=== PATIENT | female | born 1940 | race African-American/Black ===

== ENCOUNTER 2019-07-23 13:20 | Outpatient (CLI) | payer MEDICARE ==
[2019-07-23 16:02] LABS: #Basophils 0.1 thou/uL (0.0-0.2); #Eosinphils 0.4 thou/uL (0.0-0.7); #Lymphocytes 2.9 thou/uL (1.20-3.40); #Monocytes 0.8 thou/uL (0.11-0.59); #Neutrophils 4.6 thou/uL (1.40-6.50); %Basophils 1.3 % (0.0-1.0); %Eosinophils 4.8 % (0.0-10.0); %Lymphocytes 33.1 % (21.0-51.0); %Monocytes 8.8 % (0.0-10.0); Hemoglobin 9.4 g/dL (12.0-16.0); Mean Corpuscular HGB CONC 30.5 g/dL (32.0-36.0); Mean Corpuscular Hemoglobin 24.8 pg (27.0-31.0); Mean Corpuscular Volume 81.3 fL (78.0-98.0); Mean Platelet Volume 9.5 fL (7.4-10.4); Platelet Count 280 thou/uL (130-400); RBC Distribution Width 12.5 % (11.5-14.5); Red Blood Cell (RBC) Count 3.77 mill/uL (4.20-5.40); White Blood Cell (WBC) Count 8.9 thou/uL (4.8-10.8)
[2019-07-23 16:04] LABS: Bacteria/HPF None Seen HPF (None Seen); Bilirubin Negative (Negative); Blood, Urine Negative (Negative); Clarity Clear (Clear); Glucose, Urine (Dipstick) Normal (Negative); Leukocyte Negative Leu/uL (Negative); Nitrite Negative (Negative); Protein, Urine (Dipstick) Negative (Neg-Trace); RBC/HPF 0-3 HPF (0-3); Squamous Epithelial 0-3 HPF (0-3); Urobilinogen Normal mg/dL (Less than 2); WBC/HPF 0-3 HPF (0-3)
[2019-07-23 16:07] LABS: Prothrombin Time 12.6 SEC (12.0-14.7)
[2019-07-23 16:31] LABS: Anion Gap 13 mmol/L (10-20); BUN (Urea Nitrogen) 15 mg/dL (9.8-20.1); Calc. Creatinine Clearance 0 mL/min (70-130); Calcium 9.5 mg/dL (7.8-10.44); Carbon Dioxide 26 mmol/L (23-31); Chloride 104 mmol/L (98-107); Estimated GFR-MDRD 40; Glucose 83 mg/dL (83-110); Potassium 3.7 mmol/L (3.5-5.1); Sodium 139 mmol/L (136-145)
== END 2019-07-23 13:21 | disposition home or self-care (01) ==
LOC: LABBT 13:20
PROVIDERS: ATTEND Orthopaedic Surgery
DX: Z01.812 Encounter for preprocedural laboratory examination (principal); M16.12 Unilateral primary osteoarthritis, left hip
CPT/HCPCS: 80048; 81001; 85025; 85610; 87081

== ENCOUNTER 2019-08-03 15:18 | Inpatient (IN) | payer MEDICARE, OTHER ==
[2019-09-17 11:31] LABS: #Basophils 0.1 thou/uL (0.0-0.2); #Eosinphils 0.6 thou/uL (0.0-0.7); #Monocytes 0.7 thou/uL (0.11-0.59); #Neutrophils 5.3 thou/uL (1.40-6.50); %Basophils 0.8 % (0.0-1.0); %Eosinophils 6.8 % (0.0-10.0); %Lymphocytes 22.8 % (21.0-51.0); %Monocytes 8.5 % (0.0-10.0); %Neutrophils 61.1 % (42.0-75.0); Hemoglobin 9.2 g/dL (12.0-16.0); Mean Corpuscular HGB CONC 30.5 g/dL (32.0-36.0); Mean Corpuscular Hemoglobin 25.5 pg (27.0-31.0); Mean Corpuscular Volume 83.8 fL (78.0-98.0); Mean Platelet Volume 9.8 fL (7.4-10.4); Platelet Count 251 thou/uL (130-400); RBC Distribution Width 13.4 % (11.5-14.5); Red Blood Cell (RBC) Count 3.59 mill/uL (4.20-5.40); White Blood Cell (WBC) Count 8.6 thou/uL (4.8-10.8)
[2019-09-17 11:34] LABS: Anion Gap 12 mmol/L (10-20); BUN (Urea Nitrogen) 28 mg/dL (9.8-20.1); Calc. Creatinine Clearance 0 mL/min (70-130); Calcium 9.9 mg/dL (7.8-10.44); Carbon Dioxide 27 mmol/L (23-31); Chloride 106 mmol/L (98-107); Estimated GFR-MDRD 33; Glucose 87 mg/dL (83-110); Potassium 4.5 mmol/L (3.5-5.1); Sodium 140 mmol/L (136-145)
--- NOTE | 2019-09-17 11:43 | HP ---
HISTORY OF PRESENT ILLNESS: The patient is an 78-year-old female with a one year history of progressive problems with the left hip without injury. She has progressive left hip and groin pain, which is now interfering with day-to-day activities including walking, getting dressed, and driving. She has had only partial relief with use of a walker, cane, and meloxicam. The patient lives alone. She still does drive her car. None of her children live in the area, but she does have a granddaughter lives approximately 10 minutes away and maybe she would offer her some help. PAST MEDICAL HISTORY: As noted above. The patient has history of hypertension, diabetes, and does have some diabetic nephropathy. She has been seen and cleared for surgery by Dr. Thomas. CURRENT MEDICATIONS: Include; 1. Multivitamins. 2. Low-dose aspirin. 3. Lisinopril. 4. Amlodipine. 5. Carvedilol. 6. Metformin. 7. Meloxicam. ALLERGIES: SHE HAS NO KNOWN ALLERGIES. FAMILY HISTORY: Otherwise unremarkable. SOCIAL HISTORY: Otherwise unremarkable. REVIEW OF SYSTEMS: Otherwise unremarkable except for symptomatic degenerative arthritis of her right knee. PHYSICAL EXAMINATION: GENERAL: Reveals an elderly, healthy female. HEENT: Unremarkable. NECK: Supple. CHEST: Clear. HEART: Regular rate and rhythm. ABDOMEN: Soft and nontender. PELVIC: Deferred. RECTAL: Deferred. BREASTS: Deferred. EXTREMITIES: Pertinent findings in the left lower extremity, which is 0.5 cm short. There is tenderness over the anterior hip. There is a left antalgic gait. There is decreased range of motion of the left hip and groin pain with internal rotation. Neurovascular exam is intact. Distal pulses are trace. There is good capillary refill. DIAGNOSTIC STUDIES: X-rays of the left hip reveal severe DJD with no joint space remaining. There is a significant change from previous x-rays. IMPRESSION: 1. Progressive degenerative arthritis, left hip. 2. History of hypertension. 3. History of type 2 diabetes. PLAN: Left total hip replacement. The nature of the surgery, length of recovery, and potential complications such as infection, loss of motion, incomplete relief, thromboembolic phenomenon, leg length discrepancy, neurovascular injury, possible transfusion, and need for revision have been discussed in detail. Job ID: [id number]
[2019-09-17 12:00] LABS: Bilirubin Negative (Negative); Blood, Urine Negative (Negative); Clarity Turbid (Clear); Glucose, Urine (Dipstick) Normal (Negative); Leukocyte 500 Leu/uL (Negative); Nitrite Negative (Negative); Protein, Urine (Dipstick) 70 mg/dL (Neg-Trace); Squamous Epithelial 21-50 HPF (0-3); Urobilinogen 3 mg/dL (Less than 2)
[2019-09-17 12:25] LABS: Bacteria/HPF 1+ HPF (None Seen); RBC/HPF 0-3 HPF (0-3)
[2019-09-17 17:18] LABS: SARS-CoV-2 MS2 Positive; SARS-CoV-2 N Gene Negative; SARS-CoV-2 S Gene Negative; SARS-CoV-2 orf1ab Negative
[2019-09-21] MEDS ORDERED: Vancomycin 1 GM/200 ML BAG ONE (07:40)
[2019-09-21] MEDS ORDERED: Sodium Chloride 0.9% 100 ML ONE (07:40)
[2019-09-21] MEDS ORDERED: Tranexamic Acid 1,000 MG/10 ML VIAL ONE ×2 (07:40→11:57)
[2019-09-21] MEDS ORDERED: Fentanyl 100 MCG/2 ML VIAL ONE ×2 (08:10→12:04)
[2019-09-21] MEDS ORDERED: Dexamethasone 4 mg/ml Vial ONE (08:10)
[2019-09-21] MEDS ORDERED: Midazolam HCl 2 mg/2 ml Vial ONE (08:10)
[2019-09-21] MEDS ORDERED: Glycopyrrolate 0.2 MG/ML 5 ML SYRINGE ONE (10:50)
[2019-09-21] MEDS ORDERED: PROPOFOL 200 MG/20 ML VIAL ONE (10:50)
[2019-09-21] MEDS ORDERED: Bupivacaine HCl 0.5%/Epinephrine 1:200,000/PF 30 ml Vial ONE (10:50)
[2019-09-21] MEDS ORDERED: Rocuronium Bromide 10 MG/ML (10ML VIAL) ONE (10:50)
[2019-09-21] MEDS ORDERED: Ondansetron PF 4 MG/2 ML Vial ONE (10:50)
[2019-09-21] MEDS ORDERED: Dexamethasone 20 MG/5 ML VIAL ONE (10:50)
[2019-09-21] MEDS ORDERED: Lidocaine 1% PF 5 ML VIAL ONE (10:50)
[2019-09-21] MEDS ORDERED: HYDROcodone/Acetaminophen 5/325 mg Tablet PO PRN (11:24)
[2019-09-21] MEDS ORDERED: Famotidine 20 MG TAB PO PRN (11:24)
[2019-09-21] MEDS ORDERED: Fluticasone Propionate Nasal Spray 16 gm Bottle NASAL PRN (11:24)
[2019-09-21] MEDS ORDERED: SUGAMMADEX SODIUM 200 MG/2 ML VIAL ONE (11:24)
[2019-09-21] MEDS ORDERED: Tranexamic Acid 1,000 MG in Sodium Chloride 0.9% 100 ML IVPB SCH ×2 (11:24→11:45)
[2019-09-21] MEDS ORDERED: Ondansetron PF 4 MG/2 ML Vial IVP PRN (11:24)
[2019-09-21] MEDS ORDERED: diphenhydrAMINE 25 MG CAP PO PRN (11:24)
[2019-09-21] MEDS ORDERED: Loratadine 10 MG TAB PO PRN (11:24)
[2019-09-21] MEDS ORDERED: Promethazine HCl 25 MG/ML VIAL SLOW IVP PRN ×2 (11:24→11:32)
[2019-09-21] MEDS ORDERED: Non-Formulary Item 1 EACH (Azelastine Hcl [Azelastine Hcl 0.15% Nasal Spray] 2 SPRAY) EA NARE PRN (11:24)
[2019-09-21] MEDS ORDERED: traMADol HCl 50 MG TAB PO PRN ×2 (11:24)
[2019-09-21] MEDS ORDERED: Vancomycin 1 GM in Premix Bag 1 BAG IVPB SCH (11:24)
[2019-09-21] MEDS ORDERED: Zolpidem Tartrate 5 MG TAB PO PRN (11:24)
[2019-09-21] MEDS ORDERED: Acetaminophen 325 MG TAB PO PRN (11:24)
[2019-09-21] MEDS ORDERED: Promethazine HCl 25 MG/ML VIAL IM PRN (11:32)
[2019-09-21] MEDS ORDERED: Ondansetron HCl/PF 4 MG/2 ML Vial IVP PRN (11:32)
--- NOTE | 2019-09-21 13:26 | RAD ---
LEFT HIP TWO VIEWS: History: Post op follow up. FINDINGS/IMPRESSION: Left hip prosthesis has been placed. Components appear in adequate position and alignment. No acute o sseous abnormality. POS: AGW
[2019-09-21] MEDS: Sodium Chloride 0.9% 1,000 ML IV SCH ×2 (13:30→22:21)
[2019-09-21] MEDS: Fentanyl 100 MCG/2 ML VIAL SLOW IVP PRN ×2 (13:31→20:53)
--- NOTE | 2019-09-21 13:34 | PDOC.HOSPP ---
- Subjective Encounter Date: 09/21/19 Encounter Time: 13:41 Subjective: Pt is admitted after left hip replacement, consulted for medical management Patient seen and examined. No new complaints. - Objective Vital Signs & Weight: Weight Weight 170 lb I&O: 09/20/19 09/21/19 09/22/19 06:59 06:59 06:59 Intake Total 200 Output Total 750 Balance -550 Result Diagrams: 09/17/19 10:02 09/17/19 10:02 Additional Labs: Accuchecks 09/21/19 08:15 POC Glucose 103 Radiology Reviewed by me: Yes EKG Reviewed by me: Yes Hospitalist ROS - Review of Systems ENT: denies: ear pain, ear discharge, nose pain, nose discharge, nose congestion , mouth pain, mouth swelling, throat pain, throat swelling, other Respiratory: denies: cough, dry, shortness of breath, hemoptysis, SOB with excertion, pleuritic pain, sputum, wheezing, other Cardiovascular: denies: chest pain, palpitations, orthopnea, paroxysmal noc. dyspnea, edema, light headedness, other Gastrointestinal: denies: nausea, vomiting, abdominal pain, diarrhea, constipation, melena, hematochezia, other Genitourinary: denies: dysuria, frequency, incontinence, hematuria, retention, other Musculoskeletal: denies: neck pain, shoulder pain, arm pain, back pain, hand pain, leg pain, foot pain, other Skin: denies: rash, lesions, urbano, bruising, other - Medication Medications: Active Medications Generic Name Dose Route Start Last Admin Trade Name Freq PRN Reason Stop Dose Admin Fentanyl 50 mcg 09/21/19 11:24 09/21/19 13:31 Sublimaze SLOW IVP 50 mcg Q30MIN PRN Administration Moderate Pain (4-6) Sodium Chloride 1,000 mls @ 100 mls/hr 09/21/19 11:24 09/21/19 13:30 Normal Saline 0.9% IV 1,000 mls .Q10H MAKENZIE Administration - Exam General Appearance: NAD, awake alert Eye: PERRL, anicteric sclera ENT: normocephalic atraumatic, no oropharyngeal lesions Neck: supple, symmetric, no JVD, no thyromegaly Heart: RRR, no murmur, no gallops, no rubs Respiratory: CTAB, no wheezes, no rales, no ronchi Gastrointestinal: soft, non-tender, non-distended, normal bowel sounds Extremities: no cyanosis, no clubbing, no edema Extremities - other findings: SURGICAL SITE WITH DRESSING, epidrual in place Skin: normal turgor, no lesions Neurological: no focal deficits Musculoskeletal: normal tone, normal strength Psychiatric: normal affect, normal behavior Hosp A/P (1) Status post left hip replacement Code(s): Z96.642 - PRESENCE OF LEFT ARTIFICIAL HIP JOINT Status: Acute (2) Hypertension Code(s): I10 - ESSENTIAL (PRIMARY) HYPERTENSION Status: Chronic Qualifiers: Hypertension type: essential hypertension Qualified Code(s): I10 - Essential (primary) hypertension (3) Dyslipidemia Code(s): E78.5 - HYPERLIPIDEMIA, UNSPECIFIED Status: Chronic (4) Diabetes type 2, controlled Code(s): E11.9 - TYPE 2 DIABETES MELLITUS WITHOUT COMPLICATIONS Status: Chronic Qualifiers: Diabetes mellitus septic tank service technician insulin use: with septic tank service technician use Diabetes mellitus complication status: without complication Qualified Code(s): E11.9 - Type 2 diabetes mellitus without complications; Z79.4 - assisted (current) use of insulin (5) Obesity (BMI 30.0-34.9) Code(s): E66.9 - OBESITY, UNSPECIFIED Status: Chronic (6) Osteoarthritis Code(s): M19.90 - UNSPECIFIED OSTEOARTHRITIS, UNSPECIFIED SITE Status: Chronic (7) Allergic rhinitis Code(s): J30.9 - ALLERGIC RHINITIS, UNSPECIFIED Status: Chronic (8) CKD (chronic kidney disease) stage 3, GFR 30-59 ml/min Code(s): N18.3 - CHRONIC KIDNEY DISEASE, STAGE 3 (MODERATE) Status: Chronic (9) Anemia, normocytic normochromic Code(s): D64.9 - ANEMIA, UNSPECIFIED Status: Chronic - Plan old records reviewed/req, PT/OT, DVT proph w/SCDs Home medication reconciled send urine culture epidural as per anesthesia consider brownlee removal as per protocol PT/OT as tolerated Pain medication code status-full code aspirin for DVT prophylaxis as per protocol.
[2019-09-21] MEDS: HYDROcodone/Acetaminophen 5/325 mg Tablet PO PRN (16:11)
[2019-09-21] MEDS: CEFAZOLIN 2 GM in Premix Bag 1 BAG IVPB SCH (17:49)
--- NOTE | 2019-09-21 18:58 | OP ---
DATE OF PROCEDURE: 09/21/2019 BIOLOGY ADJUNCT INSTRUCTOR: JOSTNI Silva. ANESTHESIA: General plus regional fascia iliaca block. PREOPERATIVE DIAGNOSIS: Degenerative arthritis, left hip. POSTOPERATIVE DIAGNOSIS: Degenerative arthritis, left hip. PROCEDURE PERFORMED: Left total hip replacement with uncemented Pamela Trident acetabular component 52 mm with X3 polyethylene insert and uncemented [place] Accolade II femoral stem #2 with 132-degree neck angle and +5 mm neck length 36 mm metal head. DESCRIPTION OF PROCEDURE: After satisfactory anesthesia was induced in supine position, sequential compression devices were placed on the nonoperative leg throughout the procedure. The patient was then turned to the lateral decubitus position and this position held with hip positioning device. The patient was then prepped and draped in routine sterile fashion. The hip was approached through a lateral curvilinear incision over the greater trochanter, carried down through the subcutaneous tissues. Bleeding points were controlled with Bovie cautery. A direct lateral approach was accomplished by dividing the anterior third of the gluteus medius and minimus tendons, reflecting this as a single flap anteriorly and medially along with the vastus lateralis. Anterior capsulectomy was performed and the hip dislocated anteriorly. There was marked degenerative arthritis of the hip with large areas of exposed bone. Femoral neck was osteotomized with an oscillating saw using a trial prosthesis as a guide. Acetabulum was exposed and cleaned of all soft tissue and debris. It was then reamed down to bleeding subchondral bone in sequence with the power reamers to a total of 52 mm. It was felt that a 52 mm Trident PSL outer shell could be placed in a press-fit fashion. The permanent outer shell was then hammered in position. There was good fit and stability of the component and the permanent X3 polyethylene liner was then snapped into position. The proximal femur was exposed, opened with the box osteotome, and then rasped in sequence to accept a #2 Accolade II femoral rasp. The 132-degree neck angle trunnion was placed on the rasp and trial reduction with a +5 mm 36 mm head gave appropriate size, fit, stability, and maintenance of leg length. The hip was again dislocated. The trial components were removed. The permanent #2 Accolade II femoral stem was then hammered in position. There was again good fit, stability of the component. The permanent +5 mm neck length 36 mm metal head was then placed on the trunnion. The hip again reduced and found to be stable. The hip was copiously irrigated with the pulsatile lavage. The abductors were repaired with interrupted #2 Vicryl. IT band and gluteal fascia were closed with interrupted #2 Vicryl and a running #2 Quill. Subcutaneous tissues were closed with running 0 Quill suture. The skin was closed with running subcuticular 3-0 Monoderm and SurgiSeal skin adhesive. Sterile dressing was applied. The patient turned to supine position and a pillow placed between her legs. Sequential compression devices were applied to her operated leg and she was taken to the recovery room in stable condition. There were no apparent intraoperative complications. ESTIMATED BLOOD LOSS: 200 mL. Job ID: [id number]
[2019-09-21] MEDS ORDERED: Dextrose 50% Abboject 50 ML SYRINGE SLOW IVP PRN (19:57)
[2019-09-21] MEDS ORDERED: HumaLOG 300 UNITS/3 ML VIAL SC PRN ×2 (19:57)
[2019-09-21] MEDS ORDERED: Dextrose 5% in Water 1,000 ML IV PRN (19:57)
[2019-09-21] MEDS: Carvedilol 6.25 MG TAB PO SCH (20:55)
[2019-09-21] MEDS: Aspirin 81 mg Enteric Coated Tablet PO SCH (20:55)
[2019-09-21] MEDS: Atorvastatin Calcium 20 MG TAB PO SCH (20:55)
[2019-09-21] MEDS: metFORMIN 500 MG TAB PO SCH (20:56)
[2019-09-22] MEDS: HYDROcodone/Acetaminophen 5/325 mg Tablet PO PRN ×3 (03:01→16:39)
[2019-09-22] MEDS: CEFAZOLIN 2 GM in Premix Bag 1 BAG IVPB SCH (03:01)
[2019-09-22 05:51] LABS: Hemoglobin 7.6 g/dL (12.0-16.0); Mean Corpuscular HGB CONC 30.8 g/dL (32.0-36.0); Mean Corpuscular Hemoglobin 25.9 pg (27.0-31.0); Mean Platelet Volume 9.5 fL (7.4-10.4); Platelet Count 211 thou/uL (130-400); Red Blood Cell (RBC) Count 2.93 mill/uL (4.20-5.40)
[2019-09-22] MEDS: Fentanyl 100 MCG/2 ML VIAL SLOW IVP PRN ×2 (06:21→21:32)
[2019-09-22] MEDS: Sodium Chloride 0.9% 1,000 ML IV SCH ×2 (08:30→18:28)
[2019-09-22] MEDS: metFORMIN 500 MG TAB PO SCH ×2 (08:41→21:33)
[2019-09-22] MEDS: Lisinopril 20 MG TAB PO SCH (08:42)
[2019-09-22] MEDS: Multivitamin W/ Minerals 1 TAB PO SCH (08:42)
[2019-09-22] MEDS: Amlodipine 10 MG TAB PO SCH (08:43)
[2019-09-22] MEDS: Senokot S 8.6-50 MG TAB PO SCH ×2 (08:43→21:33)
[2019-09-22] MEDS: Carvedilol 6.25 MG TAB PO SCH ×2 (08:43→21:33)
[2019-09-22] MEDS: Ferrous Gluconate 324 MG TAB PO SCH ×2 (08:43→21:33)
[2019-09-22] MEDS: Aspirin 81 mg Enteric Coated Tablet PO SCH ×2 (08:43→21:33)
[2019-09-22 09:54] VITALS: BMI 31.1
--- NOTE | 2019-09-22 09:59 | PDOC.HOSPP ---
- Subjective Encounter Date: 09/22/19 Encounter Time: 08:50 Subjective: Patient seen and examined. pt feels dizzi when stands up, her Hb dropped today, No overnight events - Objective Vital Signs & Weight: Vital Signs (12 hours) Temp Pulse Resp BP BP Pulse Ox 09/22/19 08:43 65 132/66 09/22/19 08:42 132/66 09/22/19 07:41 98.5 F 16 132/66 09/22/19 03:06 98.1 F 65 14 148/66 H 100 09/21/19 23:44 97.8 F 71 16 115/66 100 Weight Admit Weight 170 lb Weight 170 lb I&O: 09/21/19 09/22/19 09/23/19 06:59 06:59 06:59 Intake Total 2262 Output Total 1925 Balance 337 Result Diagrams: 09/22/19 05:18 09/17/19 10:02 Additional Labs: Accuchecks 09/22/19 09/21/19 05:41 21:00 POC Glucose 107 202 H Hospitalist ROS - Review of Systems ENT: denies: ear pain, ear discharge, nose pain, nose discharge, nose congestion , mouth pain, mouth swelling, throat pain, throat swelling, other Respiratory: denies: cough, dry, shortness of breath, hemoptysis, SOB with excertion, pleuritic pain, sputum, wheezing, other Cardiovascular: denies: chest pain, palpitations, orthopnea, paroxysmal noc. dyspnea, edema, light headedness, other Gastrointestinal: denies: nausea, vomiting, abdominal pain, diarrhea, constipation, melena, hematochezia, other Genitourinary: denies: dysuria, frequency, incontinence, hematuria, retention, other Musculoskeletal: denies: neck pain, shoulder pain, arm pain, back pain, hand pain, leg pain, foot pain, other Skin: denies: rash, lesions, urbano, bruising, other - Medication Medications: Active Medications Generic Name Dose Route Start Last Admin Trade Name Freq PRN Reason Stop Dose Admin Hydrocodone Bitart/Acetaminophen 2 tab 09/21/19 11:24 09/22/19 08:36 Ambrose 5/325 PO 2 tab Q4H PRN Administration Moderate to Severe Pain (6-10) Amlodipine Besylate 10 mg 09/22/19 09:00 09/22/19 08:43 Norvasc PO 10 mg DAILY [facility] Administration Aspirin 81 mg 09/21/19 21:00 09/22/19 08:43 Ecotrin PO 81 mg BID MAKENZIE Administration Atorvastatin Calcium 20 mg 09/21/19 21:00 09/21/19 20:55 Lipitor PO 20 mg HS MAKENZIE Administration Carvedilol 6.25 mg 09/21/19 21:00 09/22/19 08:43 Coreg PO 6.25 mg BID MAKENZIE Administration Cholecalciferol 1,000 units 09/22/19 09:00 09/22/19 08:41 Vitamin D3 PO 1,000 units DAILY [facility] Administration Fentanyl 50 mcg 09/21/19 11:24 09/22/19 06:21 Sublimaze SLOW IVP 50 mcg Q30MIN PRN Administration Moderate Pain (4-6) Ferrous Gluconate 324 mg 09/22/19 09:00 09/22/19 08:43 Fergon PO 324 mg BID [facility] Administration Sodium Chloride 1,000 mls @ 100 mls/hr 09/21/19 11:24 09/22/19 08:30 Normal Saline 0.9% IV Not Given .Q10H [facility] Iron/Minerals/Multivitamins 1 tab 09/22/19 09:00 09/22/19 08:42 Theragran M PO 1 tab DAILY [facility] Administration Lisinopril 20 mg 09/22/19 09:00 09/22/19 08:42 Zestril PO 20 mg DAILY [facility] Administration Metformin HCl 500 mg 09/21/19 21:00 09/22/19 08:41 Glucophage PO 500 mg BID [facility] Administration Senna/Docusate Sodium 2 tab 09/22/19 09:00 09/22/19 08:43 Senokot S PO 2 tab BID MAKENZIE Administration - Exam General Appearance: NAD, awake alert Eye: PERRL, anicteric sclera ENT: normocephalic atraumatic, no oropharyngeal lesions Neck: supple, symmetric, no JVD, no thyromegaly Heart: RRR, no murmur, no gallops, no rubs Respiratory: CTAB, no wheezes, no rales, no ronchi Gastrointestinal: soft, non-tender, non-distended, normal bowel sounds Extremities: no cyanosis, no clubbing Extremities - other findings: surgical site with dressing, epidural in place, brownlee in place Skin: normal turgor, no lesions Neurological: cranial nerve grossly intact, no focal deficits Musculoskeletal: normal tone, normal strength Psychiatric: normal affect, normal behavior Hosp A/P (1) Status post left hip replacement Code(s): Z96.642 - PRESENCE OF LEFT ARTIFICIAL HIP JOINT Status: Acute (2) Hypertension Code(s): I10 - ESSENTIAL (PRIMARY) HYPERTENSION Status: Chronic Qualifiers: Hypertension type: essential hypertension Qualified Code(s): I10 - Essential (primary) hypertension (3) Dyslipidemia Code(s): E78.5 - HYPERLIPIDEMIA, UNSPECIFIED Status: Chronic (4) Diabetes type 2, controlled Code(s): E11.9 - TYPE 2 DIABETES MELLITUS WITHOUT COMPLICATIONS Status: Chronic Qualifiers: Diabetes mellitus retirement insulin use: with termite treater helper use Diabetes mellitus complication status: without complication Qualified Code(s): E11.9 - Type 2 diabetes mellitus without complications; Z79.4 - assisted (current) use of insulin (5) Obesity (BMI 30.0-34.9) Code(s): E66.9 - OBESITY, UNSPECIFIED Status: Chronic (6) Osteoarthritis Code(s): M19.90 - UNSPECIFIED OSTEOARTHRITIS, UNSPECIFIED SITE Status: Chronic (7) Allergic rhinitis Code(s): J30.9 - ALLERGIC RHINITIS, UNSPECIFIED Status: Chronic (8) CKD (chronic kidney disease) stage 3, GFR 30-59 ml/min Code(s): N18.3 - CHRONIC KIDNEY DISEASE, STAGE 3 (MODERATE) Status: Chronic (9) Anemia, normocytic normochromic Code(s): D64.9 - ANEMIA, UNSPECIFIED Status: Acute Plan: due to acute blood loss after surgery, symptomatic - Plan old records reviewed/req, PT/OT Home medication reconciled send urine culture epidural as per anesthesia consider brownlee removal as per protocol PT/OT as tolerated Pain medication code status-full code aspirin for DVT prophylaxis as per protocol. 09/22/19 transfuse 1 unit PRBC for symptomatic anemia medication reviewed and symptomatic treatment
[2019-09-22] MEDS: Atorvastatin Calcium 20 MG TAB PO SCH (21:33)
[2019-09-23] MEDS: Sodium Chloride 0.9% 1,000 ML IV SCH ×2 (03:22→18:52)
[2019-09-23] MEDS: HYDROcodone/Acetaminophen 5/325 mg Tablet PO PRN ×3 (04:03→13:44)
[2019-09-23 05:39] LABS: Hemoglobin 8.8 g/dL (12.0-16.0); Mean Corpuscular HGB CONC 31.8 g/dL (32.0-36.0); Mean Corpuscular Hemoglobin 26.8 pg (27.0-31.0); Mean Corpuscular Volume 84.3 fL (78.0-98.0); Mean Platelet Volume 9.7 fL (7.4-10.4); Platelet Count 188 thou/uL (130-400); RBC Distribution Width 13.2 % (11.5-14.5)
[2019-09-23] MEDS: Multivitamin W/ Minerals 1 TAB PO SCH (08:53)
[2019-09-23] MEDS: metFORMIN 500 MG TAB PO SCH ×2 (08:54→20:52)
[2019-09-23] MEDS: Aspirin 81 mg Enteric Coated Tablet PO SCH ×2 (08:54→20:51)
[2019-09-23] MEDS: Senokot S 8.6-50 MG TAB PO SCH ×2 (08:55→20:51)
[2019-09-23] MEDS: Ferrous Gluconate 324 MG TAB PO SCH ×2 (08:55→20:51)
[2019-09-23] MEDS: Amlodipine 10 MG TAB PO SCH (08:55)
[2019-09-23] MEDS: Carvedilol 6.25 MG TAB PO SCH ×2 (08:55→20:51)
[2019-09-23] MEDS: Lisinopril 20 MG TAB PO SCH (08:55)
--- NOTE | 2019-09-23 11:16 | PRG ---
DATE OF SERVICE: 09/22/2019 SUBJECTIVE: Sadie is an 78-year-old female, postop day 1 from left total hip arthroplasty. She appeared to be somewhat comfortable. Her block is functioning well and she has not been up yet. Otherwise, no complaints reported overnight. OBJECTIVE: VITAL SIGNS: Temperature 98.5, pulse 65, blood pressure 132/66, and respiratory rate 16 and nonlabored. GENERAL: She is alert and oriented to person, place, time, and situation. Responsive and appropriate with examiner. EXTREMITIES: Incision is clean. No strike-through. No malrotation or shortening of the involved extremity. She is neurovascularly intact in the left lower extremity. LABORATORY DATA: Hemoglobin and hematocrit of 7.6 and 24.6. IMPRESSION: 1. 78-year-old female, postop day 1 left total hip arthroplasty, currently comfortable. 2. Acute on chronic anemia. PLAN: 1. The patient will most likely receive a unit or two of blood. She is symptomatic with subjectively reported dizziness. 2. Initiate physical therapy, consideration for inpatient swing bed post acute care. Job ID: [id number]
--- NOTE | 2019-09-23 13:15 | PRG ---
DATE OF SERVICE: 09/23/2019 SUBJECTIVE: Sadie is an 78-year-old female, who is postop day 2 from a left total hip arthroplasty. She received a unit of blood yesterday and feels better and has less dizziness. Otherwise, her pain is pretty well controlled. Then, she has no complaints. OBJECTIVE: VITAL SIGNS: Temperature 98.7, pulse 75, respiratory rate 18, and blood pressure is 154/74. GENERAL: She is alert and oriented to person, place, time, situation, responsive, appropriate with examiner. EXTREMITIES: Incision is clean. No strikethrough. No malrotation or shortening of the left lower extremity. Leg lengths appeared near equal. LABORATORY DATA: Hemoglobin and hematocrit 8.8 and 27.8, which is improved from yesterday's values. IMPRESSION: An 78-year-old female postop day 2, left total hip arthroplasty. PLAN: 1. Will return in a consult for skilled placement in [place], which has already been done and the patient will continue convalesced until that facility receive. 2. No further intervention with blood products at this time. We will recheck tomorrow. Job ID: [id number]
--- NOTE | 2019-09-23 14:36 | PDOC.HOSPP ---
- Subjective Subjective: Seen and examined on the orthopedic unit. Patient is feeling much better compared to yesterday, was diagnosed with symptomatic anemia with dizziness and lightheadedness. She was transfused one unit of packed red blood cells of hemoglobin increasing from 7.6 up to 8.8. I encouraged her to continue to use her incentive spirometry, Q1 hour wall week. Daughter at bedside, time was given for questions, all answered in detail. Patient and family are happy with plan of care. - Objective Vital Signs & Weight: Vital Signs (12 hours) Temp Pulse Resp BP BP Pulse Ox 09/23/19 12:37 98.3 F 76 16 156/72 H 96 09/23/19 08:55 75 154/74 H 09/23/19 08:41 98.7 F 75 18 154/72 H 93 L 09/23/19 08:00 93 L 09/23/19 03:56 98.6 F 85 18 148/71 H 96 Weight Admit Weight 170 lb Weight 170 lb I&O: 09/22/19 09/23/19 09/24/19 06:59 06:59 06:59 Intake Total 2262 1842 Output Total 1925 Balance 337 1842 Result Diagrams: 09/23/19 05:11 09/17/19 10:02 Additional Labs: Accuchecks 09/23/19 09/23/19 09/22/19 10:34 05:59 19:24 POC Glucose 147 H 109 147 H 09/22/19 15:38 POC Glucose 124 H Radiology Reviewed by me: Yes Hospitalist ROS - Review of Systems All other systems reviewed; all pertinent +/- noted in HPI/Subj - Medication Medications: Active Medications Generic Name Dose Route Start Last Admin Trade Name Freq PRN Reason Stop Dose Admin Hydrocodone Bitart/Acetaminophen 2 tab 09/21/19 11:24 09/23/19 13:44 Hughes 5/325 PO 2 tab Q4H PRN Administration Moderate to Severe Pain (6-10) Amlodipine Besylate 10 mg 09/22/19 09:00 09/23/19 08:55 Norvasc PO 10 mg DAILY MAKENZIE Administration Aspirin 81 mg 09/21/19 21:00 09/23/19 08:54 Ecotrin PO 81 mg BID MAKENZIE Administration Atorvastatin Calcium 20 mg 09/21/19 21:00 09/22/19 21:33 Lipitor PO 20 mg HS MAKENZIE Administration Carvedilol 6.25 mg 09/21/19 21:00 09/23/19 08:55 Coreg PO 6.25 mg BID MAKENZIE Administration Cholecalciferol 1,000 units 09/22/19 09:00 09/23/19 08:55 Vitamin D3 PO 1,000 units DAILY MAKENZIE Administration Fentanyl 50 mcg 09/21/19 11:24 09/22/19 21:32 Sublimaze SLOW IVP 50 mcg Q30MIN PRN Administration Moderate Pain (4-6) Ferrous Gluconate 324 mg 09/22/19 09:00 09/23/19 08:55 Fergon PO 324 mg BID MAKENZIE Administration Sodium Chloride 1,000 mls @ 100 mls/hr 09/21/19 11:24 09/23/19 03:22 Normal Saline 0.9% IV Not Given .Q10H [facility] Iron/Minerals/Multivitamins 1 tab 09/22/19 09:00 09/23/19 08:53 Theragran M PO 1 tab DAILY [facility] Administration Lisinopril 20 mg 09/22/19 09:00 09/23/19 08:55 Zestril PO 20 mg DAILY [facility] Administration Metformin HCl 500 mg 09/21/19 21:00 09/23/19 08:54 Glucophage PO 500 mg BID [facility] Administration Senna/Docusate Sodium 2 tab 09/22/19 09:00 09/23/19 08:55 Senokot S PO 2 tab BID MAKENZIE Administration Tramadol HCl 100 mg 09/21/19 11:24 09/23/19 06:16 Ultram PO 100 mg Q6H PRN Administration Moderate to Severe Pain (6-10) - Exam General Appearance: NAD, awake alert Eye: anicteric sclera ENT: normocephalic atraumatic, moist mucosa Neck: supple, symmetric, no lymphadenopathy Heart: no gallops, no rubs Heart - other findings: S1 and S2 present Respiratory: CTAB, no wheezes, no rales, no ronchi Gastrointestinal: soft, non-tender, non-distended, normal bowel sounds, no palpable masses Extremities: 1+ LE edema Skin: no rashes Neurological: cranial nerve grossly intact Musculoskeletal: generalized weakness Psychiatric: normal affect, A&O x 3 Hosp A/P (1) Anemia, normocytic normochromic Code(s): D64.9 - ANEMIA, UNSPECIFIED Status: Acute (2) Status post left hip replacement Code(s): Z96.642 - PRESENCE OF LEFT ARTIFICIAL HIP JOINT Status: Acute (3) CKD (chronic kidney disease) stage 3, GFR 30-59 ml/min Code(s): N18.3 - CHRONIC KIDNEY DISEASE, STAGE 3 (MODERATE) Status: Chronic (4) Diabetes type 2, controlled Code(s): E11.9 - TYPE 2 DIABETES MELLITUS WITHOUT COMPLICATIONS Status: Chronic Qualifiers: Diabetes mellitus ocean transportation intermediary insulin use: with ocean transportation intermediary use Diabetes mellitus complication status: without complication Qualified Code(s): E11.9 - Type 2 diabetes mellitus without complications; Z79.4 - ocean transportation intermediary (current) use of insulin (5) Dyslipidemia Code(s): E78.5 - HYPERLIPIDEMIA, UNSPECIFIED Status: Chronic (6) Hypertension Code(s): I10 - ESSENTIAL (PRIMARY) HYPERTENSION Status: Chronic Qualifiers: Hypertension type: essential hypertension Qualified Code(s): I10 - Essential (primary) hypertension (7) Obesity (BMI 30.0-34.9) Code(s): E66.9 - OBESITY, UNSPECIFIED Status: Chronic - Plan Plan: medical unit orthopedic surgery consultation, recommendations appreciated status post left hip replacement perioperative care, progressing well symptomatic anemia status post transfusion of one unit of packed red blood cells with good response from hemoglobin 7.6 up to 8.8 continue other home medications is able blood pressure control blood sugar control G.I. prophylaxis DVT prophylaxis
[2019-09-23] MEDS: Atorvastatin Calcium 20 MG TAB PO SCH (20:51)
[2019-09-24] MEDS: Sodium Chloride 0.9% 1,000 ML IV SCH ×2 (00:18→13:15)
[2019-09-24 06:51] LABS: Hemoglobin 8.8 g/dL (12.0-16.0); Mean Corpuscular HGB CONC 31.4 g/dL (32.0-36.0); Mean Corpuscular Hemoglobin 26.5 pg (27.0-31.0); Mean Corpuscular Volume 84.4 fL (78.0-98.0); Mean Platelet Volume 9.1 fL (7.4-10.4); Platelet Count 192 thou/uL (130-400); RBC Distribution Width 13.3 % (11.5-14.5); Red Blood Cell (RBC) Count 3.32 mill/uL (4.20-5.40); White Blood Cell (WBC) Count 11.8 thou/uL (4.8-10.8)
[2019-09-24] MEDS: Lisinopril 20 MG TAB PO SCH (08:03)
[2019-09-24] MEDS: Ferrous Gluconate 324 MG TAB PO SCH ×2 (08:03→08:32)
[2019-09-24] MEDS: Carvedilol 6.25 MG TAB PO SCH (08:03)
[2019-09-24] MEDS: Aspirin 81 mg Enteric Coated Tablet PO SCH (08:03)
[2019-09-24] MEDS: Multivitamin W/ Minerals 1 TAB PO SCH ×2 (08:03→08:31)
[2019-09-24] MEDS: Amlodipine 10 MG TAB PO SCH (08:03)
[2019-09-24] MEDS: Senokot S 8.6-50 MG TAB PO SCH ×2 (08:03→08:33)
[2019-09-24] MEDS: metFORMIN 500 MG TAB PO SCH (08:03)
[2019-09-24] MEDS: HYDROcodone/Acetaminophen 5/325 mg Tablet PO PRN ×2 (08:04→18:25)
--- NOTE | 2019-09-24 12:38 | PRG ---
DATE OF SERVICE: 09/24/2019 SUBJECTIVE: Sadie is an 78-year-old female postop day #3 from a left total hip arthroplasty. She is doing relatively well. She is comfortable. She has been able to ambulate 80 to 110 feet with a rolling walker. She has no complaints of pain. OBJECTIVE: VITAL SIGNS: Temperature 99.3, pulse 78, respiratory rate 18 and unlabored, and O2 saturation is 93% on room air, blood pressure is 169/67. GENERAL: She is alert and oriented to person, place, time, situation, responsive, appropriate with examiner. Incision is clean. No leg length discrepancy. No malrotation or shortening. LABORATORY DATA: Hemoglobin and hematocrit 8.8 and 28.0 and asymptomatic. IMPRESSION: 1. An 78-year-old female postoperative day 3, left total hip arthroplasty. 2. Chronic anemia. PLAN: She has not quite met milestones and ADLs. Therefore, we will plan for a transfer to [facility]. Continue to work with therapy while she is here. Expected transfer either today or tomorrow. Job ID: [id number]
--- NOTE | 2019-09-24 13:04 | PDOC.HOSPP ---
- Subjective Encounter Date: 09/24/19 Encounter Time: 09:30 Subjective: no sob or palp pain is better today is sitting in chair and eating breakfast - Objective Vital Signs & Weight: Vital Signs (12 hours) Temp Pulse Resp BP Pulse Ox 09/24/19 11:44 99 F 72 16 145/68 H 99 09/24/19 07:24 99.9 F H 85 16 171/85 H 98 09/24/19 04:00 99.3 F 78 18 169/67 H 93 L Weight Admit Weight 170 lb Weight 170 lb I&O: 09/23/19 09/24/19 09/25/19 06:59 06:59 06:59 Intake Total 1842 Balance 1842 Result Diagrams: 09/24/19 06:26 09/17/19 10:02 Additional Labs: Accuchecks 09/24/19 09/24/19 09/24/19 11:43 05:35 00:31 POC Glucose 119 H 96 101 09/23/19 15:30 POC Glucose 124 H Hospitalist ROS - Medication Medications: Active Medications Generic Name Dose Route Start Last Admin Trade Name Freq PRN Reason Stop Dose Admin Hydrocodone Bitart/Acetaminophen 2 tab 09/21/19 11:24 09/24/19 08:04 [place] 5/325 PO 2 tab Q4H PRN Administration Moderate to Severe Pain (6-10) Amlodipine Besylate 10 mg 09/22/19 09:00 09/24/19 08:03 Norvasc PO 10 mg DAILY MAKENZIE Administration Aspirin 81 mg 09/21/19 21:00 09/24/19 08:03 Ecotrin PO 81 mg BID MAKENZIE Administration Atorvastatin Calcium 20 mg 09/21/19 21:00 09/23/19 20:51 Lipitor PO 20 mg HS MAKENZIE Administration Carvedilol 6.25 mg 09/21/19 21:00 09/24/19 08:03 Coreg PO 6.25 mg BID MAKENZIE Administration Cholecalciferol 1,000 units 09/22/19 09:00 09/24/19 08:03 Vitamin D3 PO 1,000 units DAILY MAKENZIE Administration Fentanyl 50 mcg 09/21/19 11:24 09/22/19 21:32 Sublimaze SLOW IVP 50 mcg Q30MIN PRN Administration Moderate Pain (4-6) Ferrous Gluconate 324 mg 09/22/19 09:00 09/24/19 08:32 Fergon PO Not Given BID [facility] Sodium Chloride 1,000 mls @ 100 mls/hr 09/21/19 11:24 09/24/19 00:18 Normal Saline 0.9% IV Not Given .Q10H [facility] Iron/Minerals/Multivitamins 1 tab 09/22/19 09:00 09/24/19 08:31 Theragran M PO Not Given DAILY [facility] Lisinopril 20 mg 09/22/19 09:00 09/24/19 08:03 Zestril PO 20 mg DAILY MAKENZIE Administration Metformin HCl 500 mg 09/21/19 21:00 09/24/19 08:03 Glucophage PO 500 mg BID MAKENZIE Administration Senna/Docusate Sodium 2 tab 09/22/19 09:00 09/24/19 08:33 Senokot S PO Not Given BID [facility] Tramadol HCl 100 mg 09/21/19 11:24 09/23/19 06:16 Ultram PO 100 mg Q6H PRN Administration Moderate to Severe Pain (6-10) - Exam General Appearance: NAD, awake alert Eye: PERRL, anicteric sclera ENT: no oropharyngeal lesions, moist mucosa Neck: supple, no JVD Heart: RRR, no murmur Respiratory: no wheezes, no rales Gastrointestinal: soft, non-tender, non-distended, normal bowel sounds Extremities: no cyanosis, no edema Neurological: cranial nerve grossly intact, no focal deficits Psychiatric: normal affect, A&O x 3 Hosp A/P (1) Status post left hip replacement Code(s): Z96.642 - PRESENCE OF LEFT ARTIFICIAL HIP JOINT Status: Acute (2) Diabetes type 2, controlled Code(s): E11.9 - TYPE 2 DIABETES MELLITUS WITHOUT COMPLICATIONS Status: Chronic Qualifiers: Diabetes mellitus terminal clerk insulin use: with [facility] use Diabetes mellitus complication status: without complication Qualified Code(s): E11.9 - Type 2 diabetes mellitus without complications; Z79.4 - alf (current) use of insulin (3) Dyslipidemia Code(s): E78.5 - HYPERLIPIDEMIA, UNSPECIFIED Status: Chronic (4) Hypertension Code(s): I10 - ESSENTIAL (PRIMARY) HYPERTENSION Status: Chronic Qualifiers: Hypertension type: essential hypertension Qualified Code(s): I10 - Essential (primary) hypertension (5) Obesity (BMI 30.0-34.9) Code(s): E66.9 - OBESITY, UNSPECIFIED Status: Chronic (6) Osteoarthritis Code(s): M19.90 - UNSPECIFIED OSTEOARTHRITIS, UNSPECIFIED SITE Status: Chronic Qualifiers: Osteoarthritis location: multiple joints Osteoarthritis type: primary Qualified Code(s): 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
[2019-09-24 15:28] VITALS: BP 157/69; TEMP 99.6
== END 2019-09-24 18:39 | disposition swing bed (61) | DRG 470 ==
LOC: SURG A 09-21 06:34 → SJJU 09-21 13:24
PROVIDERS: ADMIT Orthopaedic Surgery; ATTEND Orthopaedic Surgery
PROC: 0SRB0JA Replacement of Left Hip Joint with Synthetic Substitute, Uncemented, Open Approach (ICD-10-PCS; principal; 2019-09-21)
DX: M16.12 Unilateral primary osteoarthritis, left hip (principal); D62 Acute posthemorrhagic anemia; E78.5 Hyperlipidemia, unspecified; J30.2 Other seasonal allergic rhinitis; E66.9 Obesity, unspecified; I12.9 Hypertensive chronic kidney disease with stage 1 through stage 4 chronic kidney disease, or unspecified chronic kidney disease; E11.22 Type 2 diabetes mellitus with diabetic chronic kidney disease; N18.3 Chronic kidney disease, stage 3 (moderate); D63.1 Anemia in chronic kidney disease; Z11.59 Encounter for screening for other viral diseases; Z90.710 Acquired absence of both cervix and uterus; Z79.4 Long term (current) use of insulin; Z79.82 Long term (current) use of aspirin; Z79.84 Long term (current) use of oral hypoglycemic drugs; Z79.899 Other long term (current) drug therapy; Z68.31 Body mass index [BMI] 31.0-31.9, adult
CPT/HCPCS: 36415; 36416; 36430; 80048; 81001; 85025; 85027; 85610; 86850; 86900; 86901; 87635; C1776; J0670; J0690; J1100; J2001; J2250; J2405; J2704; J3010; J3370; J3490; P9016; U0003

== ENCOUNTER 2019-09-17 05:45 | Outpatient (CLI) | payer MEDICARE, OTHER ==
--- NOTE | 2019-09-20 16:13 | EKG ---
Test Reason : Blood Pressure : / mmHG Vent. Rate : 062 BPM Atrial Rate : 062 BPM P-R Int : 148 ms QRS Dur : 078 ms QT Int : 392 ms P-R-T Axes : 045 071 036 degrees QTc Int : 397 ms Normal sinus rhythm Normal ECG No previous ECGs available Confirmed by KRYS GARDNER (2) on 09/20/2019 4:12:28 PM Referred By: NIRMALA Confirmed By:KRYS GARDNER
== END 2019-09-17 05:46 | disposition home or self-care (01) ==
LOC: LABBT 05:45
PROVIDERS: ATTEND Orthopaedic Surgery
DX: Z01.810 Encounter for preprocedural cardiovascular examination (principal); M16.12 Unilateral primary osteoarthritis, left hip
CPT/HCPCS: 93005; 93010

== ENCOUNTER 2020-10-19 09:17 | Outpatient (CLI) | payer MEDICARE | END 2020-10-19 09:18 | disposition home or self-care (01) | LOC: SCSMRI 09:17 | PROVIDERS: ATTEND Orthopaedic Surgery | DX: M43.06 Spondylolysis, lumbar region (principal); M47.816 Spondylosis without myelopathy or radiculopathy, lumbar region; N28.1 Cyst of kidney, acquired | CPT/HCPCS: 72148 ==

== ENCOUNTER 2021-01-19 09:09 | Outpatient (CLI) | payer MEDICARE | END 2021-01-19 09:10 | disposition home or self-care (01) | LOC: BICRAD 09:09 | PROVIDERS: ATTEND Anesthesiology Pain Medicine | DX: M43.16 Spondylolisthesis, lumbar region (principal); M47.816 Spondylosis without myelopathy or radiculopathy, lumbar region | CPT/HCPCS: 72110 ==

== ENCOUNTER 2021-08-17 09:06 | Outpatient (CLI) | payer MEDICARE ==
[2021-08-17 10:11] LABS: #Basophils 0.1 10x3/uL (0.0-0.2); #Eosinphils 0.3 10x3/uL (0.0-0.5); #Monocytes 0.8 10x3/uL (0.0-1.1); #Neutrophils 5.5 10x3/uL (1.5-8.4); %Basophils 0.7 % (0.0-2.0); %Eosinophils 3.6 % (0.0-6.0); %Monocytes 9.7 % (0.0-10.0); %Neutrophils 65.6 % (40.0-75.0); Mean Corpuscular HGB CONC 31.1 g/dL (32.0-36.0); Mean Corpuscular Hemoglobin 24.5 pg (27.0-33.0); Mean Corpuscular Volume 78.9 fl (81.6-98.3); Mean Platelet Volume 11.1 fl (7.4-10.4); Platelet Count 295 10x3/uL (150-450); RBC Distribution Width 14.4 % (11.5-14.5); Red Blood Cell (RBC) Count 4.08 10x6/uL (3.90-5.03); White Blood Cell (WBC) Count 8.4 10x3/uL (3.5-10.5)
[2021-08-17 10:35] LABS: Anion Gap 15 mmol/L (10-20); BUN (Urea Nitrogen) 30 mg/dL (9.8-20.1); Calc. Creatinine Clearance 0 mL/min (70-130); Calcium 9.8 mg/dL (7.8-10.44); Carbon Dioxide 24 mmol/L (23-31); Chloride 107 mmol/L (98-107); Glucose 91 mg/dL (83-110); Potassium 4.2 mmol/L (3.5-5.1); Sodium 142 mmol/L (136-145)
[2021-08-17 10:39] LABS: INR-International Normal Ratio 0.9
[2021-08-17 20:05] LABS: SARS-CoV-2 PCR by NAA Not Detected (NotDetected)
== END 2021-08-17 09:07 | disposition home or self-care (01) ==
LOC: LABBT 09:06
PROVIDERS: ATTEND Orthopaedic Surgery
DX: Z01.818 Encounter for other preprocedural examination (principal); M17.11 Unilateral primary osteoarthritis, right knee; Z20.822 Contact with and (suspected) exposure to COVID-19
CPT/HCPCS: 80048; 85025; 85610; 87081; 93005; U0003; U0005; 93010

== ENCOUNTER 2021-11-27 08:08 | Outpatient (CLI) | payer MEDICARE ==
[2021-11-27 08:38] LABS: #Basophils 0.1 10x3/uL (0.0-0.2); #Eosinphils 0.2 10x3/uL (0.0-0.5); #Neutrophils 6.9 10x3/uL (1.5-8.4); %Basophils 0.6 % (0.0-2.0); %Eosinophils 2.4 % (0.0-6.0); %Lymphocytes 19.3 % (18.0-47.0); %Monocytes 9.8 % (0.0-10.0); %Neutrophils 67.6 % (40.0-75.0); Hemoglobin 10.1 g/dL (12.0-15.5); Mean Corpuscular HGB CONC 31.8 g/dL (32.0-36.0); Mean Corpuscular Hemoglobin 24.8 pg (27.0-33.0); Mean Corpuscular Volume 77.9 fl (81.6-98.3); Mean Platelet Volume 10.4 fl (7.4-10.4); Platelet Count 321 10x3/uL (150-450); RBC Distribution Width 14.6 % (11.5-14.5); Red Blood Cell (RBC) Count 4.08 10x6/uL (3.90-5.03); White Blood Cell (WBC) Count 10.1 10x3/uL (3.5-10.5)
[2021-11-27 08:58] LABS: Anion Gap 15 mmol/L (10-20); BUN (Urea Nitrogen) 22 mg/dL (9.8-20.1); Calc. Creatinine Clearance 0 mL/min (70-130); Calcium 9.6 mg/dL (7.8-10.44); Carbon Dioxide 28 mmol/L (23-31); Chloride 100 mmol/L (98-107); Estimated GFR 31; Glucose 107 mg/dL (83-110); Potassium 3.9 mmol/L (3.5-5.1); Sodium 139 mmol/L (136-145)
== END 2021-11-27 08:09 | disposition home or self-care (01) ==
LOC: LABBT 08:08
PROVIDERS: ATTEND Orthopaedic Surgery
DX: Z01.812 Encounter for preprocedural laboratory examination (principal); M25.661 Stiffness of right knee, not elsewhere classified; Z96.651 Presence of right artificial knee joint; Z20.822 Contact with and (suspected) exposure to COVID-19
CPT/HCPCS: 80048; 85025; 87811

== ENCOUNTER 2021-11-30 09:10 | Day surgery (SDC) | payer MEDICARE ==
[2021-11-28 12:25] VITALS: BMI 29.4
[2021-11-30] MEDS ORDERED: Bupivacaine HCl 0.5%/Epinephrine 1:200,000/PF 30 ml Vial ONE (10:00)
[2021-11-30] MEDS ORDERED: Fentanyl 100 MCG/2 ML VIAL ONE (10:54)
[2021-11-30] MEDS ORDERED: PROPOFOL 200 MG/20 ML VIAL ONE (12:00)
[2021-11-30] MEDS ORDERED: Rocuronium Bromide 10 MG/ML (10ML VIAL) ONE (12:00)
[2021-11-30] MEDS ORDERED: SUGAMMADEX SODIUM 200 MG/2 ML VIAL ONE (12:32)
[2021-11-30] MEDS ORDERED: HYDROcodone/Acetaminophen 5/325 mg Tablet ONE (13:03)
== END 2021-11-30 14:13 | disposition home or self-care (01) ==
LOC: SDC 09:10
PROVIDERS: ATTEND Orthopaedic Surgery
PROC: 0SQCXZZ Repair Right Knee Joint, External Approach (ICD-10-PCS; principal; 2021-11-30)
PROC: 3E0T3BZ Introduction of Anesthetic Agent into Peripheral Nerves and Plexi, Percutaneous Approach (ICD-10-PCS; 2021-11-30)
DX: M25.661 Stiffness of right knee, not elsewhere classified (principal); I11.9 Hypertensive heart disease without heart failure; E11.29 Type 2 diabetes mellitus with other diabetic kidney complication; Z79.82 Long term (current) use of aspirin; Z79.899 Other long term (current) drug therapy; Z96.651 Presence of right artificial knee joint
CPT/HCPCS: 76000; J2704; J3010